=== PATIENT | female | born 1930 | race Caucasian/White ===

== ENCOUNTER 2016-12-20 19:15 | Inpatient (IN) | payer MEDICARE, OTHER ==
[~2016-12-20] VITALS: Ht 157.5 cm; Wt 69.0 kg
--- NOTE | ~2016-12-20 | WND ---
ADMIT: 12/20/2016 RM/LOC: 432 [facility] MR#: [id number] 2620 [facility] [address], [place] [address] [place] [address] [address] W[facility] Care Clinic SEX: F AGE: 86 : 1930 DATE OF VISIT: 12/25/2016 TIME IN: 1410 hours. TIME OUT: 1450 hours. REASON FOR VISIT: Care and education regarding colostomy. A request for wound care from Dr. Lanza. HISTORY OF PRESENT ILLNESS: This is an 86-year-old, female, who was admitted to [facility] on 12/20/2016. She had transferred in [facility] with complaints of abdominal pain. She had complicated diverticulitis findings on CT scan. She had a sudden onset of abdominal pain and distention. She was transferred to [facility] where she was admitted with presumed diagnosis of diverticulitis and placed on Rocephin, IV antibiotic therapy. Her repeat CT scan showed microperforation associated with diverticulitis without abscess or free intraabdominal care. Therefore, she was transferred to [facility] for further evaluation and treatment. However, her symptoms continued to persist and she was taken to surgery on 12/24/2016 for an exploratory laparotomy with sigmoid colectomy and end colostomy. Wound Care presents today for colostomy education and ostomy cares. PAST MEDICAL HISTORY: Obtained from previous record shows coronary artery disease with prior stent insertion. Hypertension. Hypercholesterolemia. Hypothyroidism. Dysphagia. PAST SURGICAL HISTORY: Surgical history included cataract extraction. Blepharoplasty. Hysterectomy. Tonsillectomy. Appendectomy. Coronary artery stent insertion. Recent exploratory laparotomy with sigmoid colon colectomy and end colostomy. ALLERGIES: No known medication allergies. CURRENT MEDICATIONS: Per the MAR. Please see the MAR for further details. 1. Imdur. 2. Lopressor. 3. Synthroid. 4. Zocor. 5. Lovenox. 6. D5 and quarter normal saline with 20 mEq of potassium chloride. 7. Dilaudid. 8. Naropin. 9. Nitro drip. 10.Pepcid. 11.Zosyn. 12.Sodium chloride. 13.Yeast. PRN medications: ADMIT: 12/20/2016 RM/LOC: 432 [facility] MR#: [id number] 2620 [facility] [address] [place] [id number] [place] [address] Wound Care Clinic SEX: F AGE: 86 : 1930 1. Benadryl. 2. Colace. 3. Compazine. 4. Maalox. 5. Oxy-IR. 6. Tylenol. 7. Tylenol suppositories. 8. Nitrostat. 9. Benadryl. 10.Lopressor. 11.Morphine DIRECTOR OF RESEARCH AND DEVELOPMENT. 12.Narcan. SOCIAL HISTORY: High school education. No history of tobacco, alcohol, or chemical use. She is and she is retired and lives in [place], [place]. FAMILY HISTORY: Significant for Parkinson's and cancer. REVIEW OF SYSTEMS: She is examined in her hospital bed where she is awake and alert. However, according to her daughters at bedside, she is restless and confused. She denies any current fever or chills. She denies any nausea or vomiting. She denies any cough, cold, congestion, or chest pain. She denies any pain in her stomach. PHYSICAL EXAMINATION: VITAL SIGNS: Temperature is 99.4, pulse 79, respirations 27, O2 sats on room air is 95%, BP 153/74. Focused exam is to her abdomen. Her abdomen is slightly distended. She does have ABD dressings to the midline incision that are currently dry and intact. On her left abdomen is her stoma that is slightly oval in shape and measures 2.5 x 4 cm. It elevates above the surface of the skin for approximately 0.3 cm. The os is in the center. Mucocutaneous junction intact with sutures. 50 mL of liquidy fecal effluent in the pouch. 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 TREATMENT PLAN: Education was done for a total of 35 minutes regarding normal anatomy and physiology of GI tract. Discussed the normal characteristics of the stoma. Discussed the routine care of ostomies. Discussed dietary concerns. The daughters present at this visit were from [place]. They feel that eventually she would go home and that her would be able to assist her in cares of her ostomy. However, even though the education was done today with the patient because of her current cognitive status, not sure if she will ADMIT: 12/20/2016 RM/LOC: 432 [facility] MR#: [id number] [address] [place] [phone] [place] [address] Wound Care Clinic SEX: F AGE: 86 : 1930 retain any of the education. The ostomy pouch was removed and the peristomal area was cleansed with water only. It does appear to be slightly increased from 3 o'clock to 9 o'clock. A Avilla New image 2-piece 70 mm wafer #[id number] with pouch #[id number] was applied. In discussing with the sisters at the bedside, they will determine which pharmacy they would like the ostomy supplies sent to. At this time, it is uncertain whether she will be going to a step-down unit or home with home health care. Thank you for this referral and Wound will continue to follow. Pilar Ortiz APRN/ luan JOB #: [id number] CC: Jacky Lanza, Attending Physician Jacky Lanza, Family Physician
--- NOTE | ~2016-12-20 | HP ---
ADMIT: 12/20/2016 RM/LOC: 432 [facility] MR#: [id number] [address] [address] [place] [address] [place] [address] History and Physical SEX: F AGE: 86 : 1930 DATE OF SERVICE: HISTORY OF PRESENT ILLNESS: This is an 86-year-old female accepted in transfer from [facility] for Dr. Easton with complaints of abdominal pain and complicated diverticulitis findings on CT scan. Van describes yesterday at 12:30 in the afternoon, she had the sudden onset of abdominal pain, some distention with that. She had never previously had a similar episode that prompted a visit to the hospital there. She was admitted with presumed diagnosis of diverticulitis and placed on Rocephin antibiotic therapy. Her pain did not improve overnight substantially. She had a CT scan performed today at [facility], which demonstrated microperforation associated with diverticulitis without abscess or free intraperitoneal air. She subsequently was transferred here for further care and surgical evaluation. She currently is comfortable denies that the pain is worsened at all. She has had some bowel function with loose stool today. She currently has no nausea, but did receive Zofran en route as well as morphine en route. She has had a colonoscopy as recently as 3 years ago and she does not recall that there were any other abnormal findings at that point. PAST MEDICAL HISTORY: Coronary artery disease with prior stent insertion, hypertension, hypercholesterolemia, hypothyroidism, dysphagia. CURRENT MEDICATIONS: 1. Metoprolol. 2. Imdur. 3. Levothyroxine. 4. Simvastatin. 5. Multivitamin. 6. Aspirin. 7. Calcium carbonate. 8. [place]-3. 9. Vitamin D3. PAST SURGICAL HISTORY: Cataract extraction, blepharoplasty, hysterectomy, tonsillectomy, appendectomy, and coronary artery stent insertion. SOCIAL HISTORY: She has never smoked cigarettes and does not drink alcohol. FAMILY HISTORY: Significant for Parkinson's, cancer. ALLERGIES: NO KNOWN MEDICAL ALLERGIES. REVIEW OF SYSTEMS: A 10-point review of systems was performed. The symptoms of her abdominal pain and distention are mentioned above. The remainder of the 10-point review of systems is negative for recent change with the exception of slight urinary tract infection on admission. PHYSICAL EXAMINATION: GENERAL: Van is alert, oriented, and in no acute distress. On admission, she is currently afebrile. ADMIT: 12/20/2016 RM/LOC: 432 [facility] MR#: [id number] [address] [address] [facility] [address] [place] [address] History and Physical SEX: F AGE: 86 : 1930 VITAL SIGNS: Stable. HEENT: Cranial nerves are grossly intact. Sclerae appear anicteric. NECK: Supple and trachea is midline. LUNGS: Clear bilaterally. HEART: Regular rate and rhythm. ABDOMEN: Mildly distended. Soft, bowel sounds are present. She does have tenderness in the left lower quadrant extending to the lower midline with some guarding. EXTREMITIES: Calves are soft bilaterally with no tenderness. No clubbing, cyanosis, or edema. IMAGING: CT scan of the abdomen is reviewed, which showed microperforation of the diverticulitis in the sigmoid colon. IMPRESSION: 1. Complicated diverticulitis with microperforation-associated ileus. 2. Hypertension by history. 3. Hypothyroidism. 4. Coronary artery disease, history. 5. Hypercholesterolemia history. PLAN: I have started her on IV antibiotic therapy and IV fluid resuscitation. We will give her continued bowel rest with ice chips only overnight. We will check laboratory studies tonight in the morning and reassess with physical exam as well. I discussed with her the course of complicated diverticulitis and the potential need for further evaluation with repeat CAT scan and/or even the need for urgent surgical intervention with bowel resection and colostomy if she would have significant clinical deterioration. She understands all of this and agrees with that plan. We will plan to consult RADHA for assistance with medical management, particularly given her advanced age. Jacky Lanza MD/ luan JOB #: [id number] CC: Jacky Lanza, Attending Physician Jacky Lanza, Family Physician
--- NOTE | ~2016-12-20 | WND ---
ADMIT: 12/20/2016 RM/LOC: 432 [facility] MR#: [id number] [address] [facility] [address] [place], [place] [address] [place] [address] [address] Wound Care Clinic SEX: F AGE: 86 : 1930 DATE OF VISIT: 12/26/2016 TIME IN: 0825 hours. TIME OUT: 0830 hours. REASON FOR VISIT: Evaluation of stoma and ileostomy teaching, patient of Dr. Lanza. HISTORY OF PRESENT ILLNESS: This is an 86-year-old, female, who was diagnosed with perforated diverticulitis and went to surgery on 12/24/2016 for exploratory laparotomy with sigmoid colectomy and end colostomy. Wound Care is following for ostomy cares and education. REVIEW OF SYSTEMS: She is examined in her hospital bed where she is initially asleep. She does awaken to touch. She denies any fever, chills, nausea, vomiting, cough, cold, or chest pain. She says her abdomen does not hurt. In reviewing old records, she has been rather confused and she now has a sitter in the room. PHYSICAL EXAMINATION: Focused exam is to her abdomen. Her abdomen is soft. The midline incisional dressing is intact with small amount of serosanguineous drainage shadowing through. Her stoma on the left lower quadrant measured 2.5 x 4 cm on yesterday's exam. It did elevate above the surface. Pouching system was changed yesterday. It was not changed today. Scant amount of fecal material noted in the ostomy pouch. Vital signs today show a temp of 99.4, pulse 75, respirations 20, blood pressure 155/77, O2 saturation on room air 91%. ASSESSMENT: End colostomy, status post open LAR for ruptured diverticula. TREATMENT PLAN: The pouching system is intact without drainage. It was not removed today since it was just changed yesterday. Unable to do any teaching to the patient because of her current cognitive status. No family present on exam today. In speaking with the family yesterday, there is a family that is occurring with the wait today and the tomorrow. Wound Care will continue to follow. Thank you for this referral. Pilar Ortiz APRN/ luan JOB #: [id number] CC: Jacky Lanza, Attending Physician Jacky Lanza, Family Physician
--- NOTE | ~2016-12-20 | WND ---
ADMIT: 12/20/2016 RM/LOC: 432 [facility] MR#: [id number] 2620 [facility] [address] [place], [place] [address] [place] [address] [address] Wound Care Clinic SEX: F AGE: 86 : 1930 DATE OF VISIT: 12/30/2016 TIME IN: 0955 hours. TIME OUT: 1000 hours. REASON FOR VISIT: Continued colostomy cares and evaluation. HISTORY OF PRESENT ILLNESS: This is an established Wound Care patient who was admitted and went to surgery on 12/24/2016 for perforated diverticulitis. Her surgery occurred on 12/24/2016. She is getting ready to be discharged to [facility] today. Wound Care presents today for evaluation of the stoma and answer any questions related to the colostomy. REVIEW OF SYSTEMS: She is sitting in her chair inpatient where she is awake, alert, and oriented x3. Denies any recent fever or chills. No nausea or vomiting. Her appetite is good. She denies any cough, cold, or chest pain. She has no pain in her abdomen. PHYSICAL EXAMINATION: Focused exam is to her abdomen. Her abdomen is soft. Her colostomy wafer and pouch were changed yesterday. It is intact without any leakage noted. Stoma appears red, moist, and elevated. There is fecal liquidy effluent in the pouching system. Pouch not removed on today's exam. ASSESSMENT: Functioning end colostomy. TREATMENT PLAN: They will be returning to [facility] bed and will be examined by Dr. Mary in 2 weeks in the [facility]. Followup ostomy cares will be done in [place], [place]. Thank you for allowing us to care for this patient. Pilar Ortiz APRN/ luan JOB #: [id number] CC: Jacky Lanza MD, Attending Physician Jacky Lanza MD, Family Physician
--- NOTE | 2016-12-21 20:44 | PR ---
ADMIT: 12/20/2016 RM/LOC: 432 [facility] MR#: [id number] 2620 [facility] [address] [place], [place] [address] [place] [address] [place] [address] [place] [address] Progress Note SEX: F AGE: 86 : 1930 DATE: 12/21/2016 SUBJECTIVE: Van is doing okay today. She thinks her pain is slightly better. She has not had flatus or a bowel movement overnight. She has no nausea. She does feels somewhat hungry. OBJECTIVE: GENERAL: She is afebrile. VITAL SIGNS: Stable. LUNGS: Clear bilaterally. HEART: Regular rate and rhythm. ABDOMEN: Soft with stable tenderness in the left lower quadrant with guarding there and lower midline. Bowel sounds are present. EXTREMITIES: Calves are soft bilaterally with no tenderness. No significant peripheral swelling is noted. LABORATORY STUDIES: Sodium 138, potassium 3.4, chloride 104, carbon dioxide 27, BUN 26, creatinine of 1.1. White blood cell count of 11.8, hemoglobin of 13.3, platelet count of 155. IMPRESSION: Complicated diverticulitis with microperforation. PLAN: We will continue with her current antibiotic regimen. We will reassess with laboratory studies tomorrow. She does on physical exam have some improvement today from prior exam last night. Depending on her progress, we will consider repeat CAT scan to evaluate for progression of the diverticulitis episode. I discussed this with Van and her daughter and they understand that and agree with that plan. Jacky Lanza MD/ luan JOB #: [id number] CC: Jacky Lanza, Attending Physician Jacky Lanza, Family Physician
--- NOTE | 2016-12-29 11:05 | OR ---
ADMIT: 12/20/2016 RM/LOC: 432 [facility] MR#: [id number] [address] [address] [place] Replaced by [facility] [place] [address] [place] [address] Operative/Delivery Room Report SEX: F AGE: 86 : 1930 SURGERY DATE: 12/24/2016 SURGEON: Jacky Lanza MD PREOPERATIVE DIAGNOSIS: Perforated diverticulitis. POSTOPERATIVE DIAGNOSIS: Perforated diverticulitis. PROCEDURE: Exploratory laparotomy with sigmoid colectomy and end colostomy. CEMENT TRUCK DRIVER: Wilber Pena MD, whose assistance was necessary for tissue retraction. ANESTHESIA: General endotracheal. ESTIMATED BLOOD LOSS: 50 mL. DESCRIPTION OF PROCEDURE: The patient was taken to the operating room and placed supine on the operating room table. General anesthesia was established. The abdomen was prepped and draped in the standard surgical fashion. Vertical midline incision was made in the lower midline and carried through the subcutaneous tissue to the fascia. The fascia and peritoneum were carefully incised. Inspection in the abdomen revealed diffuse free air as well as fluid. This was evacuated with suction. Inspection in the left lower quadrant revealed omental adhesions to the lateral abdominal and pelvic wall as well as the sigmoid colon. These were bluntly mobilized. This exposed the obvious purulent abscess space as well as the site of perforation in the mid sigmoid. The distal descending colon was mobilized along the white line of Toldt back to the mesenteric base. The distal descending colon was skeletonized and divided with a MORAIMA blue 75 stapler. The mesentery of the sigmoid colon was divided with the EnSeal device down to the proximal rectum. The proximal rectum was skeletonized and divided with a MORAIMA blue 75 stapler. This incorporated the site of perforation. This was sent off the field as specimen sigmoid colon. Next, the left colon was mobilized along the white line of Toldt up to the splenic flexure to allow bringing the end of the descending colon to skin level for colostomy formation. The abdomen and pelvis were irrigated with saline until there was no residual contamination. ADMIT: 12/20/2016 RM/LOC: 432 [facility] MR#: [id number] 2620 [facility] [address] [place] [address] [place] [id number] Operative/Delivery Room Report SEX: F AGE: 86 : 1930 A 2 cm circular piece of skin was excised as was the underlying subcutaneous tissue down to the fascia in the left upper quadrant. The fascia was then incised in a cruciate manner to allow the passage of the end of the colostomy to skin level. The end of the colon was brought to the skin level and left in place temporarily. The midline fascial margin closure was performed with #1 PDS suture. Skin edges and subcutaneous tissues were irrigated and then approximated with zakiya. Telfa strips were packed between these to prevent postoperative abscess formation. The colostomy was then matured in the usual manner with 3-0 Vicryl suture. Colostomy appliance and dressings were applied. Sponge, needle, and instrument counts were correct at the end of the case. The patient tolerated the procedure well and transferred to the recovery area in stable condition. Jacky Lanza MD/ luan JOB #: [id number] CC: Jacky Lanza, Attending Physician Jacky Lanza, Family Physician
[2016-12-31] MEDS ORDERED: NORVASC DPS10 MG PO (11:00)
[2016-12-31] MEDS ORDERED: IMDUR DPS60 MG PO (11:00)
[2016-12-31] MEDS ORDERED: LOPRESSOR DPS100 MG PO (11:00)
[2016-12-31] MEDS ORDERED: SYNTHROID DP0.025 MG PO (11:00)
[2016-12-31] MEDS ORDERED: PEPCID DPS20 MG PO (11:00)
[2016-12-31] MEDS ORDERED: ZESTRIL DPS40 MG PO (11:01)
[2016-12-31] MEDS ORDERED: LOVENOX DP40 MG/0.4 SQ (11:01)
[2016-12-31] MEDS ORDERED: ZOCOR DPS20 MG PO (11:01)
[2016-12-31] MEDS ORDERED: DAILY MULTIPLE1 EAC1 PO (11:02)
[2016-12-31] MEDS ORDERED: ASPIR 8181 MG PO (11:02)
[2016-12-31] MEDS ORDERED: VITAMIN D31000 UNIT PO (11:02)
--- NOTE | 2017-01-07 12:45 | DS ---
ADMIT: 12/20/2016 RM/LOC: 432 [facility] MR#: [id number] 2620 [facility] [address] [place] [address] [place] [address] [address] Discharge Summary SEX: F AGE: 86 : 1930 ADMISSION DATE: 12/20/2016 DISCHARGE DATE: 12/30/2016 ADMITTING DIAGNOSIS: Perforated diverticulitis. DISMISSAL DIAGNOSES: 1. Diverticulosis with chronic diverticulitis. 2. Acute peritonitis. 3. Coronary artery disease with prior stent placement. 4. Hypertension. 5. Hypercholesterolemia. 6. Hypothyroidism. 7. Dysphagia. PROCEDURES: Exploratory laparotomy with sigmoid colectomy and end colostomy. HOSPITAL COURSE: The patient was a transfer from [facility], who was admitted under our services for perforated diverticulitis. She was an inpatient admit with routine telemetry with PCU orders. Conservative measures were first attempted with IV antibiotic therapy. RADHA was consulted to help in the medical management of this case. Initially in the first few days, the patient was recovering well. Her pain was controlled and she was not nauseous. However, due to a worsening CT scan with free air noted, the patient was taken back to the surgical suite to have exploratory laparotomy with sigmoid colectomy and end colostomy performed. After surgery, the patient remained as an inpatient. An epidural was placed to help with pain control. She was also given a morphine CENTRAL OFFICE MAINTAINER. Overall, the patient recovered after surgery. Wound Care nursing was consulted to help with ostomy cares. She did get a little confused while in the hospital, but we believe this is a side effect of the morphine. She was also given Seroquel to help with this. She continued to recover well and was tolerating an advanced diet. Epidural was pulled on postop day #5. A Springer that was placed intraoperatively was also pulled at this time. Her pain was controlled, and so she was weaned off of her CENTRAL OFFICE MAINTAINER and was tolerating oral pain medications. She had good return of her bowel function as noted in the ostomy bag. Vitals remained stable, and her lab work normalized. She continued to recover well and was able to discharge to a swing bed on 12/30/2016. At this time, her confusion greatly improved. DISCHARGE INSTRUCTIONS: 1. Follow up with primary care physician in 1-2 weeks. 2. Regular diet. 3. Full code. ADMIT: 12/20/2016 RM/LOC: 432 [facility] MR#: [id number] 2620 [facility] [address] [place] [id number] [address] Discharge Summary SEX: F AGE: 86 : 1930 4. Continue ostomy cares. 5. Follow up with Dr. Lanza in 7-10 days in clinic [address] Dr. Mary in [place]. DISCHARGE MEDICATION LIST: 1. Imdur extended release 60 mg daily. 2. Levothyroxine 25 mcg daily. 3. Metoprolol tartrate 100 mg b.i.d. 4. Simvastatin 20 mg as directed. 5. Multivitamin daily. 6. Vitamin D3, 1000 units daily. 7. Aspirin 81 mg daily. BERTA Watkins / Jacky Lanza MD / alli JOB #: [id number] CC: Jacky Lanza MD, Attending Physician Jacky Lanza MD, Family Physician
== END 2016-12-30 13:21 | DRG 330 ==
LOC: 4PCU 19:15
PROVIDERS: ADMIT Surgery
DX: K57.20 Diverticulitis of large intestine with perforation and abscess without bleeding (principal); K56.7 Ileus, unspecified; F05 Delirium due to known physiological condition; I25.10 Atherosclerotic heart disease of native coronary artery without angina pectoris; T40.2X5A Adverse effect of other opioids, initial encounter; R13.10 Dysphagia, unspecified; I10 Essential (primary) hypertension; E78.00 Pure hypercholesterolemia, unspecified; E03.9 Hypothyroidism, unspecified; Z95.5 Presence of coronary angioplasty implant and graft